=== PATIENT | male | born 1990 | race Caucasian/White ===

== ENCOUNTER 2022-03-21 08:05 | Emergency (ER) | payer OTHER ==
[2022-03-21] MEDS ORDERED: Ondansetron PF 4 MG/2 ML Vial ONE (08:55)
[2022-03-21 09:12] LABS: Anion Gap 21 mmol/L (10-20); BUN (Urea Nitrogen) 14 mg/dL (8.9-20.6); Calc. Creatinine Clearance 0 mL/min (70-130); Calcium 9.8 mg/dL (7.8-10.44); Carbon Dioxide 24 mmol/L (22-29); Chloride 99 mmol/L (98-107); Estimated GFR 100; Glucose 98 mg/dL (70-105); Potassium 4.2 mmol/L (3.5-5.1); Sodium 140 mmol/L (136-145)
[2022-03-21] MEDS ORDERED: Prochlorperazine 10 MG/2 ML VIAL ONE (12:03)
== END 2022-03-21 17:36 | disposition home or self-care (01) ==
LOC: CSHERS 08:05
DX: E86.0 Dehydration (principal); R11.2 Nausea with vomiting, unspecified; R19.7 Diarrhea, unspecified; R53.1 Weakness; F17.220 Nicotine dependence, chewing tobacco, uncomplicated
CPT/HCPCS: 80048; 96361; 96365; 96375; J0780; J2405

== ENCOUNTER 2023-07-19 15:27 | Emergency (ER) | payer BC, OTHER ==
[2023-07-19 16:59] LABS: #Eosinphils 0.1 10x3/uL (0.0-0.5); #Monocytes 0.7 10x3/uL (0.0-1.1); #Neutrophils 5.2 10x3/uL (1.5-8.4); %Basophils 0.4 % (0.0-2.0); %Eosinophils 1.4 % (0.0-6.0); %Lymphocytes 23.6 % (18.0-47.0); %Monocytes 8.4 % (0.0-10.0); %Neutrophils 65.9 % (40.0-75.0); Hematocrit 41.1 % (38.8-50.0); Hemoglobin 14.2 g/dL (13.5-17.5); Mean Corpuscular HGB CONC 34.5 g/dL (32.0-36.0); Mean Corpuscular Hemoglobin 29.5 pg (27.0-33.0); Mean Corpuscular Volume 85.3 fl (81.2-95.1); Mean Platelet Volume 9.9 fl (7.4-10.4); Platelet Count 210 10x3/uL (150-450); RBC Distribution Width 13.5 % (11.5-14.5); Red Blood Cell (RBC) Count 4.82 10x6/uL (4.32-5.72); White Blood Cell (WBC) Count 7.9 10x3/uL (3.5-10.5)
== END 2023-07-19 17:15 | disposition home or self-care (01) ==
LOC: CSHERS 15:27
DX: K64.4 Residual hemorrhoidal skin tags (principal); K64.8 Other hemorrhoids; F17.220 Nicotine dependence, chewing tobacco, uncomplicated
CPT/HCPCS: 36415; 85025; 99283

== ENCOUNTER 2025-03-21 13:46 | Emergency (ER) | payer BC, OTHER ==
[~2025-03-21 13:46] MED LIST: Iopamidol 300 61% 100 ML VIAL FS ONE
[2025-03-21 14:32] LABS: #Basophils 0.03 10x3/uL (0.0-0.2); #Eosinophils 0.08 10x3/uL (0.0-0.5); #Monocytes 0.48 10x3/uL (0.0-1.1); #Neutrophils 3.40 10x3/uL (1.5-8.4); %Basophils 0.5 % (0.0-2.0); %Eosinophils 1.4 % (0.0-6.0); %Lymphocytes 32.3 % (18.0-47.0); %Monocytes 8.1 % (0.0-10.0); %Neutrophils 57.5 % (40.0-75.0); Hematocrit 43.6 % (38.8-50.0); Hemoglobin 15.2 g/dL (13.5-17.5); Mean Corpuscular Hemoglobin 28.8 pg (27.0-33.0); Mean Corpuscular Volume 82.7 fL (81.2-95.1); Platelet Count 247 10x3/uL (150-450); Red Blood Cell (RBC) Count 5.27 10x6/uL (4.32-5.72); White Blood Cell (WBC) Count 5.91 10x3/uL (3.5-10.5)
[2025-03-21 14:42] LABS: ALT (SGPT) 33 U/L (Less than 45); AST (SGOT) 24 U/L (11-34); Albumin 4.2 g/dL (3.1-4.5); Alkaline Phosphatase 69 U/L (40-110); Anion Gap 13 mmol/L (10-20); BUN (Urea Nitrogen) 14 mg/dL (8.9-20.6); Bilirubin, Total 0.3 mg/dL (0.3-1.2); Calc. Creatinine Clearance 0 mL/min (70-130); Calcium 9.3 mg/dL (7.8-10.44); Carbon Dioxide 24 mmol/L (22-29); Chloride 108 mmol/L (98-107); Globulin 3.3 g/dL (2.4-3.5); Glucose 97 mg/dL (70-105); Lipase 74 U/L (8-78); Potassium 3.9 mmol/L (3.5-5.1); Sodium 141 mmol/L (136-145)
== END 2025-03-21 18:19 | disposition home or self-care (01) ==
LOC: CSHERS 13:46
DX: K64.9 Unspecified hemorrhoids (principal); F17.220 Nicotine dependence, chewing tobacco, uncomplicated
CPT/HCPCS: 74177; 80053; 83690; 85025; Q9967

== ENCOUNTER 2025-06-12 08:27 | Emergency (ER) | payer BC, OTHER ==
[2025-06-12] MEDS ORDERED: Ketorolac Tromethamine 30 MG (1 mL) VIAL ONE (09:34)
[2025-06-12 09:49] LABS: #Basophils Less than 0.03 10x3/uL (0.0-0.2); #Eosinophils 0.11 10x3/uL (0.0-0.5); #Monocytes 0.54 10x3/uL (0.0-1.1); #Neutrophils 5.52 10x3/uL (1.5-8.4); %Basophils 0.3 % (0.0-2.0); %Eosinophils 1.4 % (0.0-6.0); %Lymphocytes 18.7 % (18.0-47.0); %Monocytes 7.1 % (0.0-10.0); %Neutrophils 72.2 % (40.0-75.0); Hematocrit 41.2 % (38.8-50.0); Hemoglobin 13.7 g/dL (13.5-17.5); Mean Corpuscular Hemoglobin 28.7 pg (27.0-33.0); Mean Corpuscular Volume 86.2 fL (81.2-95.1); Platelet Count 216 10x3/uL (150-450); Red Blood Cell (RBC) Count 4.78 10x6/uL (4.32-5.72); White Blood Cell (WBC) Count 7.64 10x3/uL (3.5-10.5)
[2025-06-12 10:16] LABS: ALT (SGPT) 20 U/L (Less than 45); AST (SGOT) 22 U/L (11-34); Albumin 3.8 g/dL (3.1-4.5); Alkaline Phosphatase 53 U/L (40-110); Anion Gap 11 mmol/L (10-20); BUN (Urea Nitrogen) 14 mg/dL (8.9-20.6); Bilirubin, Total 0.4 mg/dL (0.3-1.2); Calc. Creatinine Clearance 0 mL/min (70-130); Calcium 9.1 mg/dL (7.8-10.44); Carbon Dioxide 26 mmol/L (22-29); Chloride 107 mmol/L (98-107); Globulin 2.5 g/dL (2.4-3.5); Glucose 88 mg/dL (70-105); Potassium 4.3 mmol/L (3.5-5.1); Sodium 140 mmol/L (136-145)
[2025-06-12] MEDS ORDERED: Iopamidol 370 76% 100 ML VIAL ONE (10:33)
== END 2025-06-12 11:15 | disposition home or self-care (01) ==
LOC: CSHERS 08:27
DX: K62.89 Other specified diseases of anus and rectum (principal); F17.220 Nicotine dependence, chewing tobacco, uncomplicated
CPT/HCPCS: 36415; 72193; 80053; 83605; 85025; 86140; 96374; 96375; J1885; J3010; Q9967